=== PATIENT | male | born 1975 | race Caucasian/White ===

== ENCOUNTER 2019-07-03 08:27 | Emergency (ER) | payer MEDICAID ==
[~2019-07-03] VITALS: Ht 180.3 cm; Wt 115.3 kg
[2019-07-03 09:14] VITALS: BP 142/81
== END 2019-07-03 10:05 | disposition home or self-care (01) ==
LOC: ER 08:28
DX: R07.89 Other chest pain (principal); R05 Cough; Z98.890 Other specified postprocedural states; Z87.891 Personal history of nicotine dependence
CPT/HCPCS: 71046; 93005; 99283

== ENCOUNTER 2020-03-02 11:15 | Emergency (ER) | payer MEDICAID ==
[~2020-03-02] VITALS: Ht 180.3 cm; Wt 116.0 kg
[2020-03-02 11:28] VITALS: BP 116/72
== END 2020-03-02 13:20 | disposition home or self-care (01) ==
LOC: ER 11:16
DX: R19.7 Diarrhea, unspecified (principal); R11.0 Nausea; R10.9 Unspecified abdominal pain; Z98.890 Other specified postprocedural states
CPT/HCPCS: 99281

== ENCOUNTER 2020-05-27 08:04 | Emergency (ER) | payer MEDICAID ==
[~2020-05-27] VITALS: Ht 180.3 cm; Wt 120.0 kg
[2020-05-27 08:09] VITALS: BP 134/87
== END 2020-05-27 09:08 | disposition home or self-care (01) ==
LOC: ER 08:06
DX: S39.012A Strain of muscle, fascia and tendon of lower back, initial encounter (principal); S29.019A Strain of muscle and tendon of unspecified wall of thorax, initial encounter; Z79.899 Other long term (current) drug therapy; W01.0XXA Fall on same level from slipping, tripping and stumbling without subsequent striking against object, initial encounter; Y93.89 Activity, other specified; Y92.89 Other specified places as the place of occurrence of the external cause; Y99.8 Other external cause status
CPT/HCPCS: 99284

== ENCOUNTER 2020-08-01 05:59 | Emergency (ER) | payer MEDICAID ==
[~2020-08-01] VITALS: Ht 180.3 cm; Wt 118.0 kg
[2020-08-01 06:26] LABS: BASOPHILS % (AUTO) 0.4 % (0-1); EOSINOPHILS # (AUTO) 0.2 X10'3 (0-0.9); EOSINOPHILS % (AUTO) 1.7 % (0-6); HEMATOCRIT 47.5 % (42.0-52.0); HEMOGLOBIN 16.3 g/dl (14.0-17.9); LYMPHOCYTES # (AUTO) 4.7 X10'3 (1.1-4.8); LYMPHOCYTES % (AUTO) 43.2 % (21-51); MEAN CORPUSCULAR HEMOGLOBIN 30.5 PG (27.0-31.0); MEAN CORPUSCULAR HGB CONC 34.3 g/dL (33.0-36.5); MEAN PLATELET VOLUME 7.1 FL (7.4-10.4); MONOCYTES # (AUTO) 1.1 X10'3 (0-0.9); MONOCYTES % (AUTO) 9.8 % (2-12); NEUTROPHILS # (AUTO) 4.9 X10'3 (1.8-7.7); NEUTROPHILS % (AUTO) 44.9 % (42-75); PLATELET COUNT 314 X10'3 (140-440); RED BLOOD COUNT 5.34 X10'6 (4.70-6.10); RED CELL DISTRIBUTION WIDTH 14.1 % (11.5-14.5); WHITE BLOOD COUNT 10.8 X10'3 (4.5-11.0)
[2020-08-01 06:37] LABS: ALANINE AMINOTRANSFERASE 82 U/L (12-78); ALBUMIN/GLOBULIN RATIO 1.1 (1.1-1.5); ALKALINE PHOSPHATASE 86 IU/L (46-116); ANION GAP 10 (8-16); ASPARTATE AMINO TRANSFERASE 85 U/L (10-37); BILIRUBIN,TOTAL 1.8 MG/DL (0.1-1.0); BLOOD UREA NITROGEN 15 MG/DL (7-18); BUN/CREATININE RATIO 15.2 (5.4-32.0); CALCIUM 9.4 MG/DL (8.5-10.1); CHLORIDE 102 MMOL/L (99-107); CREATININE 0.99 MG/DL (0.60-1.10); GLUCOSE 105 MG/DL (70-104); LIPASE 85 U/L (73-393); POTASSIUM 3.9 MMOL/L (3.5-5.1); SODIUM 138 MMOL/L (135-145); TOTAL CARBON DIOXIDE 26.5 MMOL/L (24-32); TOTAL PROTEIN 7.8 G/DL (6.4-8.2); eGFR 83 ML/MIN
[2020-08-01] MEDS ORDERED: ondansetron 4mg rapidly disintigrating tab PO ONE (07:05)
[2020-08-01] MEDS ORDERED: ONDA4TAB6 PO (07:06)
[2020-08-01] MEDS ORDERED: ondansetron/PF 4mg/2ml inj IV ONE (08:00)
[2020-08-01] MEDS ORDERED: normal saline 1000ML IV soln IVB ONE (08:00)
[2020-08-01 08:28] VITALS: BP 135/85
== END 2020-08-01 08:33 | disposition home or self-care (01) ==
LOC: ER 05:59
DX: A08.4 Viral intestinal infection, unspecified (principal); R11.2 Nausea with vomiting, unspecified; R19.7 Diarrhea, unspecified; R53.83 Other fatigue; Z98.890 Other specified postprocedural states; Z79.899 Other long term (current) drug therapy
CPT/HCPCS: 36415; 80053; 83690; 85025; 99283

== ENCOUNTER 2020-08-07 12:59 | Emergency (ER) | payer MEDICAID ==
[~2020-08-07] VITALS: Ht 180.3 cm; Wt 118.2 kg
[~2020-08-07 12:59] MED LIST: ONDA4TAB6 PO
[2020-08-07] MEDS ORDERED: normal saline 1000ML IV soln IVB ONE (13:50)
[2020-08-07] MEDS ORDERED: ondansetron/PF 4mg/2ml inj IV ONE (13:50)
--- NOTE | 2020-08-07 14:18 | NUR ---
PATIENT IS NOT IN THE TENT, WHERE HE WAS PLACED FOR HIS TREATMENT. PATIENT IS NOT NOTICED IN SURROUNDING AREA. PROVIDER NOTIFIED THAT PATIENT MAY HAVE LEFT BEFORE TREATMENTS PERFORMED.
== END 2020-08-07 14:45 | disposition home or self-care (01) ==
LOC: ER 13:00
DX: B34.9 Viral infection, unspecified (principal); R11.2 Nausea with vomiting, unspecified; R63.0 Anorexia; R19.7 Diarrhea, unspecified; R53.1 Weakness; Z20.828 Contact with and (suspected) exposure to other viral communicable diseases; Z98.890 Other specified postprocedural states; Z79.899 Other long term (current) drug therapy
CPT/HCPCS: 99282

== ENCOUNTER 2023-06-30 11:27 | Emergency (ER) | payer MEDICAID ==
[~2023-06-30] VITALS: Ht 180.3 cm; Wt 118.1 kg
[2023-06-30 11:40] VITALS: BP 128/77; PULSE 94; RESP 18; TEMP 97.8; O2SAT 98
[2023-06-30] MEDS ORDERED: ibuprofen tablet 400 MG TABLET PO ONE (12:10)
--- NOTE | 2023-06-30 18:00 | NUR ---
PT WAS UP FOR D\C PRIOR TO BEING ASSIGNED AN RN
== END 2023-06-30 18:00 | disposition home or self-care (01) ==
LOC: ER 11:28
DX: S01.01XA Laceration without foreign body of scalp, initial encounter (principal); Z79.899 Other long term (current) drug therapy; X58.XXXA Exposure to other specified factors, initial encounter; Y93.89 Activity, other specified; Y92.89 Other specified places as the place of occurrence of the external cause; Y99.8 Other external cause status
CPT/HCPCS: 12002; 99282; A6449

== ENCOUNTER 2023-07-08 10:33 | Emergency (ER) | payer OTHER, MEDICAID ==
[~2023-07-08] VITALS: Ht 180.3 cm; Wt 115.9 kg
[2023-07-08 10:48] VITALS: TEMP 97.7
[2023-07-08] MEDS ORDERED: BUPIVAcaine/PF 2.5mg/ml (0.25%) 10ml vial ONE (11:20)
[2023-07-08 12:08] VITALS: BP 103/75; PULSE 72; RESP 16; O2SAT 98
== END 2023-07-08 12:12 | disposition home or self-care (01) ==
LOC: ER 10:34
DX: S01.01XD Laceration without foreign body of scalp, subsequent encounter (principal); Z48.00 Encounter for change or removal of nonsurgical wound dressing; X58.XXXD Exposure to other specified factors, subsequent encounter
CPT/HCPCS: 99281; J3490; A6449

== ENCOUNTER 2024-01-20 15:59 | Outpatient (CLI) | payer MEDICAID | END 2024-01-20 23:59 | disposition home or self-care (01) | LOC: RAD 15:59 | PROVIDERS: ATTEND Family Medicine | DX: M19.071 Primary osteoarthritis, right ankle and foot (principal); M79.674 Pain in right toe(s) | CPT/HCPCS: 73630 ==

== ENCOUNTER 2024-06-09 11:57 | Outpatient (CLI) | payer MEDICAID | END 2024-06-09 23:59 | disposition home or self-care (01) | LOC: RAD 11:57 | PROVIDERS: ATTEND Nurse Practitioner Family | DX: R29.898 Other symptoms and signs involving the musculoskeletal system (principal) | CPT/HCPCS: 73030 ==

== ENCOUNTER 2024-06-16 11:13 | Outpatient (CLI) | payer MEDICAID | END 2024-06-16 23:59 | disposition home or self-care (01) | LOC: MRI 11:13 | PROVIDERS: ATTEND Nurse Practitioner Family | DX: M19.011 Primary osteoarthritis, right shoulder (principal); M25.811 Other specified joint disorders, right shoulder; R29.898 Other symptoms and signs involving the musculoskeletal system | CPT/HCPCS: 73221 ==

== ENCOUNTER 2024-11-18 12:26 | Emergency (ER) | payer MEDICAID, OTHER ==
[~2024-11-18] VITALS: Ht 180.3 cm; Wt 122.7 kg
[2024-11-18 14:11] VITALS: BP 131/91; PULSE 78; RESP 18; TEMP 98.1; O2SAT 99
== END 2024-11-18 14:17 | disposition home or self-care (01) ==
LOC: ER 12:27
DX: K42.0 Umbilical hernia with obstruction, without gangrene (principal); Z98.890 Other specified postprocedural states
CPT/HCPCS: 76705; 99284

== ENCOUNTER 2025-01-25 09:46 | Emergency (ER) | payer BC, MEDICAID ==
[~2025-01-25] VITALS: Ht 180.3 cm; Wt 121.8 kg
[2025-01-25 10:06] VITALS: BP 107/71; PULSE 75; TEMP 98.7; O2SAT 95
--- NOTE | 2025-01-25 10:41 | RADIOLOGY REPORT ---
CHEST RADIOGRAPH Indication: RIGHT SIDED CHEST WALL PAIN. Technique: Frontal and lateral view of the chest was obtained Comparison: CHEST,TWO VIEWS on DOS: 07/03/19 FINDINGS: Lines and Tubes: None Lungs: Clear Pleura: No effusion. No pneumothorax. Cardiomediastinal contours: Unremarkable Bones: Unremarkable IMPRESSION: No evidence of acute disease.
--- NOTE | 2025-01-25 12:14 | Physician Documentation ---
History of Present Illness ~ Chief Complaint: Chest Wall Pain Stated Complaint: PAIN IN R ARM Time Seen by MD: 11:20 Primary Medical Doctor: Brandy SILVER HPI Patient is seen today with complaints of pain of his right chest wall/pectoral area and right shoulder girdle. Patient states he has pain in his right side of his neck as well when he moves his right shoulder in abduction and looks to his left side. Patient states he is not concerned for any type of heart attack and denies any crushing chest pain or chest pressure or shortness of breath or abdominal pain or nausea, vomiting, diarrhea. Patient states he mainly just needs a note for work today and tomorrow. He has no other concern or complaint at this time. Tetanus within 5 Years?: No Allergies: Coded Allergies: No Known Allergies (Unverified , 01/25/25) Active Prescriptions See Medication Reconciliation Form. Medication Reconciliation Scheduled PRN Ondansetron Hcl (Zofran), 1 TAB PO Q6H PRN for nausea/vomiting Past Medical History Past Medical History: Hernia, *MUSCULOSKELETAL* Past Surgical History: orthopedic surgeries, other Alcohol Use: None Lives In: Home Occupation: employed Physical Exam Vital Signs: Temperature: 98.7, Source: Temporal, Heart Rate: 75, Respiratory Rate: 18, BP: 107/71, Pulse Oximetry: 95, Weight: 121.820 Oxygen Flow Rate: 0 Progress Results/Orders Results/Orders Vital Signs 01/25/25 10:06 Temp 98.7 Pulse 75 Resp 18 B/P (MAP) 107/71 Pulse Ox 95 O2 Flow Rate 0 EKG/XRAY/CT/US/VASC/MRI Chest X-Ray : Additional Comments Chest x-ray today interpreted by myself today shows no large effusion, no large infiltrate, normal mediastinum. DIAGNOSTIC RADIOLOGY Patient: ROSA MARIA WONG Medical Record: [id number] : 1975, Age: 49 Sex: Male Location: ER Patient Status: REG ER Service Date/Time: 01/25/25/ 1009 Ordering Physician: FABIAN GREENE MD Exam: CHEST,TWO VIEWS CHEST RADIOGRAPH Indication: RIGHT SIDED CHEST WALL PAIN. Technique: Frontal and lateral view of the chest was obtained Comparison: CHEST,TWO VIEWS on DOS: 07/03/19 FINDINGS: Lines and Tubes: None Lungs: Clear Pleura: No effusion. No pneumothorax. Cardiomediastinal contours: Unremarkable Bones: Unremarkable IMPRESSION: No evidence of acute disease. Electronically Signed by:EMERSON PULLIAM MD Date & Time: 01/25/25 1039 Dictated by: EMERSON PULLIAM MD Dictation date and time: 01/25/25 1028 Primary Care Provider: NO PRIMARY CARE PROVIDER cc: FABIAN GREENE MD ~ Medical Decision Making Findings Patient is seen today with complaints of pain of his right chest wall/pectoral area and right shoulder girdle. Patient states he has pain in his right side of his neck as well when he moves his right shoulder in abduction and looks to his left side. Patient states he is not concerned for any type of heart attack and denies any crushing chest pain or chest pressure or shortness of breath or abdominal pain or nausea, vomiting, diarrhea. Patient states he mainly just needs a note for work today and tomorrow. He has no other concern or complaint at this time. Patient will be given note to be excused from work today and tomorrow. Patient was given Toradol shot 30 mg IM in the ED today. Patient will follow up with [facility] for referral to physical therapy if needed or epic specialist as needed. Patient will return to ED with any worsening, concerning or changing symptoms. Departure Disposition: HOME / SELF CARE / HOMELESS Impression: Primary Impression: Chest wall pain Condition: Improved Discharge Instructions: Chest Wall Pain, Costochondritis Additional Instructions: Patient will be given note to be excused from work today and tomorrow. Patient was given Toradol shot 30 mg IM in the ED today. Patient will follow up with primary care for referral to physical therapy if needed or epic specialist as needed. Patient will return to ED with any worsening, concerning or changing symptoms. Prescription of meloxicam 15 mg one tab by mouth once a day sent to patient's pharmacy to be taken with food. Departure Forms: Excuse form Work or School Excused From: Work Excuse beginning now through the following date: January 26, 2025 Referrals: NO PRIMARY CARE PROVIDER (PCP) Prescriptions Meloxicam (Meloxicam) 15 Mg Tablet 1 TAB PO DAILY for 30 Days, #30 TAB 0 Refills Prov: FLAVIO VILLA 01/25/25 Signature Scribe Signature: No scribe Attestation: No scribe no scribe FLAVIO VILLA January 25, 2025 12:14
[2025-01-25] MEDS ORDERED: MELO-102 PO (12:18)
[2025-01-25 12:34] VITALS: RESP 18
[2025-01-25] MEDS: ketorolac trometh 30MG/ML vial 30 MG/ML VIAL IV STA (12:34)
== END 2025-01-25 12:39 | disposition home or self-care (01) ==
LOC: ER 09:47
DX: R07.89 Other chest pain (principal)
CPT/HCPCS: 71046; 96372; 99283; J1885

== ENCOUNTER 2025-04-26 02:14 | Emergency (ER) | payer BC, OTHER ==
[~2025-04-26] VITALS: Ht 180.3 cm; Wt 111.3 kg
[~2025-04-26 02:14] MED LIST changes: +MELO-102 PO
[2025-04-26 02:15] VITALS: BP 140/98; PULSE 87; TEMP 98.3; O2SAT 98
--- NOTE | 2025-04-26 02:31 | Physician Documentation ---
History of Present Illness ~ Chief Complaint: Neck pain Stated Complaint: NECK PAIN Time Seen by MD: 02:30 Primary Medical Doctor: Brandy SILVER HPI Patient presents to the emergency room for evaluation of acute on chronic neck pain. Patient has been dealing with his neck pain for months. The day got real bad that has has a point the spasms were debility he would need to come in. Denies chest pain Medication Reconciliation Allergies: Coded Allergies: No Known Allergies (Unverified , 01/25/25) Scheduled Meloxicam (Meloxicam), 1 TAB PO DAILY Scheduled PRN Ondansetron Hcl (Zofran), 1 TAB PO Q6H PRN for nausea/vomiting Past Medical History Past Medical History: Hernia, *MUSCULOSKELETAL* Past Surgical History: orthopedic surgeries, other Alcohol Use: None Lives In: Home Occupation: employed Review of Systems ROS All review of systems negative except as per HPI Physical Exam Vital Signs: Temperature: 98.3, Heart Rate: 87, Respiratory Rate: 14, BP: 140/98, Pulse Oximetry: 98, Weight: 111.300 Physical Exam General: Patient is awake, alert, oriented x4 in no acute Head: Normocephalic and atraumatic. Eyes: Conjunctival normal. EOMI. PERRL. ENT: Mucous membranes moist. Neck: Supple, trachea is midline. Tenderness to palpation to bilateral distribution of trapezius muscles Chest: Clear to auscultation bilaterally without rales, rhonchi, or wheezes. There is no accessory muscle use or retractions. Cardiac: RRR without murmurs, gallops, or rubs. Abd: Soft, nondistended, nontender, with normoactive bowel sounds. No guarding, rebound, or rigidity. Procedures Procedures Point injection: Status post informed verbal consent 3 cc of lidocaine with epinephrine was injected into points of max tenderness to both left and right trapezius muscle. Before injection syringe was withdrawn to ensure no intravenous/intra arterial injection occurred. Patient tolerated procedure well without complication. Total time of procedure 2 minutes Progress Results/Orders Results/Orders Completed Orders - LUCIAN CROOKS MD Ketorolac Trometh 15mg/Ml Vial (Toradol (04/26/25 02:50) Magnesium Oxide Tablet (Mag-Ox 400mg Tab (04/26/25 02:50) Vital Signs 04/26/25 02:15 Temp 98.3 Pulse 87 Resp 14 B/P (MAP) 140/98 Pulse Ox 98 Medical Decision Making Findings Patient presented to the emergency room with neck pain. Differentials include but are not limited to torticollis, meningitis, referred pain, spasms. Given physical exam and history I believe patient is suffering from spasms and we will treat him as such. Departure Disposition: HOME / SELF CARE / HOMELESS Impression: Primary Impression: Neck pain Condition: Stable Discharge Instructions: Acute Torticollis, Adult Referrals: NO PRIMARY CARE PROVIDER (PCP) Prescriptions Cyclobenzaprine* (Cyclobenzaprine*) 10 Mg Tablet 1 TAB PO Q8H for muscle spasms for 10 Days, #30 TAB 0 Refills Prov: LUCIAN CROOKS MD 04/26/25 Hydrocodone Bit/Acetaminophen 5/325 MG (Endicott 5/325 MG) 5 Mg/325 Mg Tablet 1-2 TAB PO Q4-6 hours PRN for pain, #7 TAB Prov: LUCIAN CROOKS MD 04/26/25 Education Educated: Patient Educated regarding: diagnosis, treatment, need for follow up Signature Scribe Signature: No scribe Attestation: The note accurately reflects work and decisions made by me.Lucian Crooks MD 04/26/25 02:56 LUCIAN CROOKS MD Apr 26, 2025 02:31
[2025-04-26] MEDS ORDERED: CYCL-1 PO (02:55)
[2025-04-26] MEDS ORDERED: HYDR-3965 PO (02:55)
[2025-04-26 02:58] VITALS: RESP 16
[2025-04-26] MEDS: ketorolac trometh 15mg/ml vial 15 MG/ML ML IM ONE (02:58)
== END 2025-04-26 03:07 | disposition home or self-care (01) ==
LOC: ER 02:14
DX: G89.29 Other chronic pain (principal); M54.2 Cervicalgia; Z79.899 Other long term (current) drug therapy
CPT/HCPCS: 20552; 96372; 99284; J1885

== ENCOUNTER 2025-05-16 05:14 | Day surgery (SDC) | payer BC ==
[2025-05-09 10:14] LABS: MEAN PLATELET VOLUME 7.2 FL (7.4-10.4); PRE OP HEMATOCRIT 44.5 % (42.0-52.0); PRE OP HEMOGLOBIN 15.3 g/dL (14.0-17.9); PRE OP PLATELET COUNT 346 X10'3 (140-440); PRE OP WHITE BLOOD COUNT 10.3 10'3 (4.8-10.8); RED CELL DISTRIBUTION WIDTH 13.2 % (11.5-14.5)
--- NOTE | 2025-05-09 10:17 | ELECTROCARDIOGRAPH REPORT ---
[facility] Test Date: 2025-05-09 Test Time: 10:15:47 Pat Name: ROSA MARIA WONG Department: [facility]-PRE-OP Patient ID: [id number] Room: Gender: M Qm Nurse: [email or web address] : 1975 Requested By: ANDREW MORRISON Order Number: [id number] Reading MD: Dr. EDER King Measurements Intervals [place] Rate: 65 P: 53 [place]: 140 QRS: 1 QRSD: 103 T: 46 QT: 391 QTc: 407 Interpretive Statements Sinus rhythm Electronically Signed On 05-09-2025 20:36:[address] EDER King Please click the below link to view image of tracing.
[2025-05-09 10:19] LABS: CREATININE 0.72 MG/DL (0.60-1.10); PRE OP ALT 19 U/L (30-65); PRE OP ANION GAP 7 (8-16); PRE OP AST 16 U/L (10-37); PRE OP BILIRUB, TOTAL 0.7 MG/DL (0.0-1.0); PRE OP GLUCOSE 90 MG/DL (70-104); PRE OP POTASSIUM 4.5 MMOL/L (3.4-5.1); PRE OP SODIUM 138 MMOL/L (135-145); TOTAL CARBON DIOXIDE 29.9 MMOL/L (24-32); eGFR > 90 ML/MIN
[~2025-05-16] VITALS: Ht 180.3 cm; Wt 110.7 kg
[2025-05-16] VITALS (10 sets, daily range): BP systolic 97–137; BP diastolic 51–82; PULSE 68–78; RESP 11–19; TEMP 97.8; O2SAT 94–100
[~2025-05-16 05:14] MED LIST changes: +IBUP-1986 PO; -MELO-102 PO; -ONDA4TAB6 PO
[2025-05-16] MEDS: ringers solution, lacted 1,000 ML IV SCH (05:30)
[2025-05-16] MEDS: ceFAZolin 2gm/dext,iso 50mL 50 ML IV ONE (05:59)
[2025-05-16] MEDS ORDERED: BUPIVAcaine/PF 2.5mg/ml (0.25%) 10ml vial ONE (06:45)
[2025-05-16] MEDS ORDERED: LIDOcaine 1% (10mg/ml)w/preservative inj. 20ml MDV ONE (06:45)
[2025-05-16] MEDS ORDERED: BUPIVAcaine 2.5mg/ml inj 50ml vial (contains preservative) ONE (06:48)
[2025-05-16] MEDS ORDERED: BUPIVACAINE liposomal/PF 13.3 MG/ML 10mL vial IM ONE (06:49)
[2025-05-16] MEDS ORDERED: midazolam 1 mg/ML 2ml injection ONE (07:38)
[2025-05-16] MEDS ORDERED: fentaNYL /PF 50mcg/ml 5ml ampule ONE (07:38)
[2025-05-16] MEDS ORDERED: LIDOcaine 2% (20mg/ml) 5ml vial ONE (07:46)
[2025-05-16] MEDS ORDERED: dexamethasone sod phosphate 4mg/ml inj. ONE (07:46)
[2025-05-16] MEDS ORDERED: propofol inj 20 ML IV ONE (07:46)
[2025-05-16] MEDS ORDERED: ondansetron/PF 4mg/2ml inj ONE (07:46)
[2025-05-16] MEDS ORDERED: rocuronium 10mg/ml inj IV ONE (07:46)
--- NOTE | 2025-05-16 07:46 | HISTORY AND PHYSICAL ---
History & Physical Providers to CC CC: ANDREW MORRISON MD ~ History of Present Illness Reason for Admit\Complaint: Recurrent ventral/incisional hernia History of Present Illness Interval history and physical exam Patient is a 49-year-old gentleman who has a 5 cm recurrent ventral/incisional hernia He was seen in the office greater than 30 days ago but denies any change in his past medical history (please see previous history and physical exam for all pertinent details He is scheduled for robotic assisted, laparoscopic recurrent ventral/incisional hernia repair with mesh Allergies: Coded Allergies: No Known Allergies (Unverified , 01/25/25) Home Medications Home Medications Active Reported Ibuprofen 800 Mg Tablet 1 Tab PO TID PRN Exam Vitals: Vital Signs Date Time Temp Pulse Resp B/P (MAP) Pulse Ox O2 Delivery O2 Flow Rate FiO2 05/16/25 06:00 78 16 97 05/16/25 05:56 Room Air Chest: Lungs are clear to auscultation bilaterally Cardiovascular: Regular rate and rhythm without murmurs Abdomen: Soft and nondistended Lower midline 5 cm fascial defect Problems: (1) Recurrent ventral hernia Assessment & Plan: The risks, benefits, and alternatives to a robotic assisted, laparoscopic possible open recurrent ventral/incisional hernia repair with mesh were discussed with the patient. Risks include, but are not limited to, bleeding, infection, injury to intra-abdominal structures, hernia recurrence and chronic postoperative pain. Patient verbalized understanding and wishes to proceed with surgery. We will do so today as scheduled ANDREW MORRISON MD May 16, 2025 07:46
[2025-05-16] MEDS ORDERED: acetaminophen 1,000mg/100ml IV 100 ML IV ONE (07:55)
[2025-05-16] MEDS ORDERED: labetalol 20mg/4ml (5mg/ml) syringe IV PRN (08:15)
[2025-05-16] MEDS ORDERED: HYDROmorphone/PF 0.2 MG/ML SYRINGE IV PRN ×2 (08:15)
[2025-05-16] MEDS ORDERED: ringers solution, lacted 1,000 ML IV SCH (08:15)
[2025-05-16] MEDS ORDERED: enalaprilat 1.25mg/ml 2ml vial IV PRN (08:15)
[2025-05-16] MEDS ORDERED: ondansetron/PF 4mg/2ml inj IV PRN (08:15)
[2025-05-16] MEDS: BUPIVAcaine/PF 2.5mg/ml (0.25%) 10ml vial IJ ONE ×2 (08:21→08:23)
[2025-05-16] MEDS: LIDOcaine 1% 30ml preserv. free vial IJ ONE (08:22)
[2025-05-16] MEDS: BUPIVACAINE liposomal/PF 13.3 MG/ML 10mL vial IM ONE (08:24)
[2025-05-16] MEDS ORDERED: glycopyrrolate 0.2mg/ml inj ONE (09:10)
[2025-05-16] MEDS: morphine 4 MG/ML inj SYRINge IV PRN (09:32)
[2025-05-16] MEDS: fentaNYL/PF 50MCG/1 ML 2ML syringe IV PRN ×2 (09:36→09:42)
--- NOTE | 2025-05-16 09:49 | OPERATIVE REPORT ---
Operative Report Providers to CC CC: ELIAZAR MORRISON MD ~ Date of Procedure: May 16, 2025 Pre-Operative Diagnosis: Incisional hernia Post-Operative Diagnosis Recurrent ventral hernia-3 cm Procedure Performed Robotic assisted, laparoscopic recurrent 3 cm ventral hernia repair with mesh Bilateral transversus abdominis plane nerve blocks by injection using 266 mg of Exparel Surgeon: Eliazar Morrison MD FACS Political Cartoonist None Anesthesiologist: Kerwin Ordaz Type of Anesthesia: General Findings: Recurrent periumbilical ventral hernia with evidence of previous mesh repair measuring 3 cm in diameter Wound Class I Complications None Prosthetics\Implants used: 12 cm diameter coated polyester mesh Estimated Blood Loss: Minimal Specimen Removed: Portion of previously placed hernia mesh Description of Procedure: Patient was brought to the operating room and identified by the nursing staff and the attending physician. Patient was placed supine and a general anesthesia was induced. Preoperative antibiotics were given. The abdomen was prepped and draped in the standard sterile fashion. Through a left subcostal stab incision the abdomen was accessed with a Veress needle technique. Abdomen was insufflated without incident. The incision was lengthened to accommodate a 12 mm optical trocar and the abdomen was entered under laparoscopic visualization. The abdomen was surveyed laparoscopically. I was not able to see much of any of the intra-abdominal space due to significant adhesions between omentum and the anterior abdominal wall. There was a small window where I can visualize the right upper quadrant. Through this window I placed an additional 8.5 mm robotic trocar and then moved the camera to this placed. There were intra-abdominal adhesions from the abdominal midline to the left of the abdomen, but the entire right side of the abdomen was clear. Two additional 8.5 mm robotic trocars were placed in the right lateral and right lower quadrant spaces under laparoscopic visualization. The da Keyla robotic arm was docked to the patient and instruments guided intra-abdominally under laparoscopic visualization. About 30 minutes was spent taking down adhesions to the anterior abdominal wall between omentum and the anterior abdominal wall in the left lateral abdomen. In doing so, I completely expose the 12 mm port site as well as what appeared to be a previously repaired periumbilical ventral hernia. Mesh had folded back along the superior margin and there was a 3 cm fascial defect. The unincorporated mesh was excised and set aside. Fascial defect(s) were then reapproximated with running, nonabsorbable, 0V lock suture. Good fascial apposition was obtained without significant tension. A coated polyester mesh was then fixed to the anterior abdominal wall with running, absorbable, 2/0, V lock suture. Mesh laid without wrinkles or folds. The mesh measured 12 cm in diameter. The overlapping mesh was secured to each other using nonabsorbable V lock suture. The da Keyla instruments were then removed and the robot undocked from the patient. Bilateral transversus abdominis plane nerve blocks by injection were then placed under laparoscopic visualization using a combination of Marcaine and 266 mg of Exparel. The left subcostal trocar was removed and its fascia closed percutaneously with 0 Vicryl suture under laparoscopic visualization. Remaining trochars were removed after the abdomen was allowed to deflate. Skin was closed at all sites with 4-0 Monocryl sutures and dressed with sterile dressings. Patient was awakened and taken to the postanesthesia care unit in stable condition. Counts repoted as correct: Yes ELIAZAR MORRISON MD May 16, 2025 09:49
[2025-05-16] MEDS: oxyCODONE/APAP 5-325mg tablet PO PRN (10:03)
== END 2025-05-16 10:26 | disposition home or self-care (01) ==
LOC: PAS 05:14
PROVIDERS: ATTEND Surgery
DX: K43.2 Incisional hernia without obstruction or gangrene (principal); E66.9 Obesity, unspecified; Z87.891 Personal history of nicotine dependence; Z79.1 Long term (current) use of non-steroidal anti-inflammatories (NSAID); Z98.890 Other specified postprocedural states; Z68.34 Body mass index [BMI] 34.0-34.9, adult
CPT/HCPCS: 36415; 49615; 80053; 82948; 85025; 93005; C1781; J0131; J0666; J1100; J2003; J2250; J2270; J2405; J2704; J2710; J3010; J3490; J7030; J7120; S2900; Z7506; Z7508; Z7512; A4215; A4618